=== PATIENT | female | born 1985 | race Caucasian/White ===

== ENCOUNTER → 2018-12-19 | Outpatient (CLI) | payer MEDICAID ==
[2018-12-19 12:49] LABS: HCT 41.6 % (34.0-46.0); HGB 13.5 gm/dL (11.4-16.0); MCH 27.4 pg (25.0-35.0); MCHC 32.4 g/dL (31.0-37.0); MCV 84.6 fL (80.0-100.0); Mean Platelet Volume 8.3; Platelet Count 257 k/uL (150-450); RBC 4.92 m/uL (3.80-5.40); WBC 7.9 k/uL (3.8-10.6)
[2018-12-19 12:59] LABS: Glucose 78 mg/dL (74-99)
--- NOTE | 2018-12-19 13:38 | US ---
EXAMINATION TYPE: Transabdominal DATE OF EXAM: 12/19/2018 1:08 PM COMPARISON: NONE CLINICAL HISTORY: Z36 confirm dates. Confirm dates, 1 EXAM PERFORMED: Transabdominal (TA) EXAM MEASUREMENTS: GESTATIONAL AGE / DATING Physician Established: Not established yet Dates by LMP: Unknown Dates by First Scan: This is 1st scan Dates by Current Scan for: (10 weeks/3 days) EDC: 07/14/2019 MATERNAL ANATOMY Uterus: 9.0 x 5.1 x 6.3cm, anteverted Right Ovary: 3.0 x 1.5 x 1.8cm Left Ovary: 3.4 x 1.7 x 2.6cm Post CDS / Adnexa: wnl Presence of free fluid: no Presence of corpus luteal cyst: left ovary: 1.7 x 1.1 x 1.6cm hypoechoic area, possible corpus luteum Presence of subchorionic bleed: no GESTATION / SURVEY CRL: 3.5cm (10 weeks/3 days) Yolk Sac (normal less than 6mm): not seen at this time Heart Rate: 167 bpm Rhythm: Normal IUP: Viable IUP Date of LMP: Patient unsure IMPRESSION: Viable single IUP measuring 10 weeks 3 days with a heart rate of 167bpm and an estimated delivery maged e of 07/14/2019.
[2018-12-20 04:08] LABS: Toxoplasma Antibody (IgG) <3.0 IU/mL (<7.2); Toxoplasma Antibody (IgM) <3.0 AU/mL (<8.0)
== END ==
LOC: RADUSWWP 12:23
PROVIDERS: ATTEND Obstetrics & Gynecology
DX: Z36.89 Encounter for other specified antenatal screening (principal); Z34.01 Encounter for supervision of normal first pregnancy, first trimester; Z3A.10 10 weeks gestation of pregnancy
CPT/HCPCS: 76801; 82565; 82947; 85027; 86762; 86777; 86778; 86780; 86850; 86900; 86901; 87340

== ENCOUNTER → 2019-02-15 | Outpatient (CLI) | payer MEDICAID ==
[2019-02-16 09:26] LABS: Alpha Fetoprotein (M.O.M) 1.25; B-HCG (M.O.M.) 1.75; Gestational Age (days) 0; Human Chorionic Gonadotropin 40.9 IU/mL; Inhibin A (M.O.M.) 0.94; Maternal Age at EDD (Yrs) 33; Smoker No
== END | disposition home or self-care (01) ==
LOC: LABWHC1 10:03
PROVIDERS: ATTEND Obstetrics & Gynecology
DX: Z34.02 Encounter for supervision of normal first pregnancy, second trimester (principal); Z3A.00 Weeks of gestation of pregnancy not specified
CPT/HCPCS: 36415; 82105; 82677; 84702; 86336

== ENCOUNTER → 2019-02-23 | Outpatient (CLI) | payer MEDICAID ==
--- NOTE | 2019-02-23 14:57 | US ---
EXAMINATION TYPE: US OB anatomy transabd DATE OF EXAM: 02/23/2019 COMPARISON: Early OB HISTORY: Large for dates O36.62X0 Anatomy scan TECHNIQUE: Transabdominal (TA) EXAM MEASUREMENTS: GESTATIONAL AGE / DATING Physician Established: (19 weeks/1 days) EDC: 07/19/2019 Dates by LMP: (19 weeks/1 days) EDC: 07/19/2019 Dates by First Scan: (19 weeks/6 days) EDC: 07/14/2019 Dates by Current Scan for: (19 weeks/0 days) EDC: 07/20/2019 SURVEY IUP: Single PLACENTA: Posterior PREVIA: No previa BETTIE: 13.0 cm Normal CERVICAL LENGTH (transabdominal: norm > 3.0cm): 3.7 cm BIOMETRY PRESENTATION: Breech BPD: 4.3 cm 19 weeks / 0 days HC: 16.5 cm 19 weeks / 1 days AC: 14.1 cm 19 weeks / 3 days FL: 3.0 cm 19 weeks / 1 days ESTIMATED WEIGHT IN GRAMS: 285 grams ESTIMATED WEIGHT IN LBS/OZ: 0 lbs. 10 oz. WEIGHT PERCENTAGE BASED ON ESTABLISHED DATE: 55.6 % HC/AC: 1.17 Normal FL/AC: 21 Normal HEART RATE: 142 bpm RHYTHM: Normal ANATOMY SEEN (within normal limits): * Lateral Vent (< 1 cm) 0.8 cm * Cisterna Magna (< 1.1 cm) 0.3 cm * Nuchal Fold (< 0.6 cm) 0.3 cm * Cerebellum (varies with age) 1.8 cm Choroid Plexus (bilateral) Midline Falx Cavus Septi Pellucidi Four Chamber Heart Outflow tracts: LVOT/RVOT Stomach Situs Nose / Lips Diaphragm Kidneys (bilateral) Bladder Cord Insert Three Vessel Cord Longitudinal Spine Transverse Spine Arms (bilateral) Legs (bilateral) Single, viable IUP/ Anatomy on list above appears wnl/ Incidental finding of possible echogenic bow el IMPRESSION: Single viable corresponding to ultrasound age 19 weeks 0 days with estimated delivery 07/20 by today's exam, technologist reports possible echogenic bowel, consider follow-up
== END | disposition home or self-care (01) ==
LOC: RADUSWWP 12:16
PROVIDERS: ATTEND Obstetrics & Gynecology
DX: O36.62X0 Maternal care for excessive fetal growth, second trimester, not applicable or unspecified (principal); Z3A.19 19 weeks gestation of pregnancy
CPT/HCPCS: 76811

== ENCOUNTER → 2019-04-17 | Outpatient (CLI) | payer MEDICAID ==
[2019-04-17 10:28] LABS: HCT 35.5 % (34.0-46.0); HGB 11.8 gm/dL (11.4-16.0); MCH 28.3 pg (25.0-35.0); MCHC 33.2 g/dL (31.0-37.0); MCV 85.2 fL (80.0-100.0); Mean Platelet Volume 8.4; Platelet Count 210 k/uL (150-450); RBC 4.17 m/uL (3.80-5.40); RDW 13.7 % (11.5-15.5)
== END | disposition home or self-care (01) ==
LOC: LABWHC1 08:58
PROVIDERS: ATTEND Obstetrics & Gynecology
DX: Z34.02 Encounter for supervision of normal first pregnancy, second trimester (principal)
CPT/HCPCS: 36415; 82950; 85027

== ENCOUNTER → 2019-06-15 | Outpatient (CLI) | payer MEDICAID ==
--- NOTE | 2019-06-15 13:39 | US ---
EXAMINATION TYPE: US OB >= 14 wk fetus DATE OF EXAM: 06/15/2019 COMPARISON: None CLINICAL HISTORY: O36.63X0 large for dates, third trimesterLarge for dates. TECHNIQUE: Transabdominal (TA) GESTATIONAL AGE / DATING Physician Established: (35 weeks/1 days) EDC: 07/19/2019 Dates by LMP: (35 weeks/1 days) EDC: 07/19/2019 Dates by First Scan: (10 weeks/3 days) EDC: 07/14/2019 Dates by Current Scan: (34 weeks/0 days) EDC: 07/27/2019 SURVEY IUP: Single PLACENTA: Fundal PREVIA: No Previa BETTIE: 14.1 cm Normal CERVICAL LENGTH (transabdominal: norm > 3.0cm): 3.4 cm BIOMETRY PRESENTATION: Vertex LIE: Longitudinal BPD: 8.49 cm 34 weeks / 1 days HC: 29.62 cm 32 weeks / 5 days AC: 31.84 cm 35 weeks / 5 days FL: 6.80 cm 35 weeks / 0 days ESTIMATED WEIGHT IN GRAMS: 2580 grams ESTIMATED WEIGHT IN LBS/OZ: 5 lbs. 11 oz. WEIGHT PERCENTAGE BASED ON ESTABLISHED DATES: 44.4% HC/AC: 0.93 Abnormal FL/AC: 21.37 cm Normal HEART RATE: 127 bpm RHYTHM: Normal IMPRESSION: Single live intrauterine has a sonographic age of 34 weeks and 0 days and estimated date of delivery of 07/27/2019, slightly discordant with menstrual age. Weight percentage based on establish ed dates of 44.4%.
== END | disposition home or self-care (01) ==
LOC: RADUSWWP 12:52
PROVIDERS: ATTEND Obstetrics & Gynecology
DX: O36.63X0 Maternal care for excessive fetal growth, third trimester, not applicable or unspecified (principal); Z3A.34 34 weeks gestation of pregnancy
CPT/HCPCS: 76805

== ENCOUNTER 2019-07-08 01:35 | Inpatient (IN) | payer MEDICAID ==
[2019-07-08] MEDS ORDERED: LIDOCAINE 0.5% (PF) 5 MG/ML (50 ML SDV) SQ PRN (02:20)
[2019-07-08] MEDS ORDERED: TERBUTALINE 1 MG/ML VIAL SQ PRN (02:20)
[2019-07-08] MEDS ORDERED: METHYLERGONOVINE 0.2 MG/ML 1 ML AMP IM PRN (02:20)
[2019-07-08] MEDS ORDERED: OXYTOCIN 10 UNIT/ML 1 ML VIAL IM PRN (02:20)
[2019-07-08] MEDS ORDERED: CARBOPROST TROMETHAMINE 250 MCG/ML 1 ML AMP IM PRN (02:20)
[2019-07-08 02:30] VITALS: RESP 16
[2019-07-08] MEDS: LACTATED RINGERS 1,000 ML IV SCH ×3 (02:58→19:51)
[2019-07-08 03:06] LABS: Basophils # (A) 0.1 k/uL (0-0.2); Basophils % (A) 1 %; Eosinophils # (A) 0.1 k/uL (0-0.7); Eosinophils % (A) 1 %; HCT 36.4 % (34.0-46.0); HGB 12.8 gm/dL (11.4-16.0); Lymphocytes # (A) 2.8 k/uL (1.0-4.8); Lymphocytes % (A) 24 %; MCH 28.7 pg (25.0-35.0); MCHC 35.2 g/dL (31.0-37.0); MCV 81.5 fL (80.0-100.0); Mean Platelet Volume 7.9; Monocytes # (A) 0.6 k/uL (0-1.0); Monocytes % (A) 5 %; Neutrophils # (A) 7.9 k/uL (1.3-7.7); Neutrophils % (A) 68 %; Platelet Count 217 k/uL (150-450); RBC 4.47 m/uL (3.80-5.40); RDW 12.7 % (11.5-15.5); WBC 11.7 k/uL (3.8-10.6)
[2019-07-08 03:28] VITALS: BMI 32.7
[2019-07-08] MEDS ORDERED: ROPIVACAINE 5MG/ML 20ML VIAL ONE (04:25)
[2019-07-08] MEDS ORDERED: SODIUM CHLORIDE 0.9% 100 ML BAG ONE (04:25)
[2019-07-08] MEDS ORDERED: fentaNYL (PF) 50 MCG/ML 5 ML AMP ONE (04:25)
[2019-07-08] MEDS ORDERED: HYDROcodone/APAP 5-325MG 1 EACH TAB PO PRN (09:34)
[2019-07-08] MEDS ORDERED: LANOLIN CREAM 5 GM TUBE TOPICAL PRN (09:34)
[2019-07-08] MEDS ORDERED: diphenhydrAMINE 50 MG CAP PO PRN (09:34)
[2019-07-08] MEDS ORDERED: BENZOCAINE/MENTHOL SPRAY 1 GM/SPRAY AEROSOL TOPICAL PRN (09:34)
[2019-07-08] MEDS ORDERED: diphenhydrAMINE 25 MG CAP PO PRN (09:34)
[2019-07-08] MEDS ORDERED: ZOLPIDEM 5 MG TAB PO PRN (09:34)
[2019-07-08] MEDS ORDERED: WITCH HAZEL 1 EACH MED..PAD TOPICAL PRN (09:34)
[2019-07-08] MEDS ORDERED: diphenhydrAMINE 50 MG/ML 1 ML VIAL IVP PRN ×2 (09:34)
[2019-07-08] MEDS ORDERED: MEASLES-MUMPS-RUBELLA VACC/PF 12,500 UNIT/0.5 ML VIAL SQ ONE (09:34)
[2019-07-08] MEDS ORDERED: SIMETHICONE 80 MG CHEWABLE PO PRN (09:34)
[2019-07-08] MEDS ORDERED: HYDROCORTISONE 2.5% RECTAL CREAM 30 GM TUBE RECTAL PRN (09:34)
[2019-07-08] MEDS ORDERED: ACETAMINOPHEN TAB 325 MG TAB PO PRN (09:34)
--- NOTE | 2019-07-08 09:37 | P.HPOB ---
History of Present Illness H&P Date: 07/08/19 Chief Complaint: Intrauterine at term: Spontaneous rupture membranes Patient is a 33-year-old at 38 weeks gestation who arrives following spontaneous rupture of membranes. She was having a few contractions prior to rupture but has started yvon consistently following spontaneous rupture membranes. Her course was, complicated by echogenic bowel on ultrasound at approximately 19 weeks for which she did see MFM. No specific therapies otherwise were advised. She also had heartburn through the latter part of the but this was controlled by Zantac. No other significant issues medically. Pertinent labs O+ blood type, Rh and it was negative, rubella was nonimmune, hepatitis B surface antigen and RPR as well as GBS were all neg ative. A category 1 tracings noted with heart tones in the 130s to 140s and she is dilated to 5 cm at presentation. Past Medical History Past Medical History: No Reported History History of Any Multi-Drug Resistant Organisms: None Reported Past Surgical History: No Surgical Hx Reported Past Anesthesia/Blood Transfusion Reactions: No Reported Reaction Past Psychological History: No Psychological Hx Reported Smoking Status: Never smoker Past Alcohol Use History: None Reported Past Drug Use History: None Reported - Past Family History Father Family Medical History: Hypertension Medications and Allergies Home Medications Medication Instructions Recorded Confirmed Type Pnv,Calcium 72/Iron/Folic Acid 1 each PO DAILY 07/08/19 07/08/19 History [ Plus Tablet] Allergies Allergy/AdvReac Type Severity Reaction Status Date / Time No Known Allergies Allergy Verified 07/08/19 01:45 Exam Osteopathic Statement: *. No significant issues noted on an osteopathic structural exam other than those noted in the History and Physical/Consult. Vital Signs Temp Pulse Resp BP 07/08/19 09:25 98 F 104 H 16 130/71 07/08/19 02:13 97.8 F 99 16 124/73 07/08/19 01:46 97.8 F 99 16 124/73 Intake and Output 07/07/19 07/08/19 07/08/19 22:59 06:59 14:59 Output Total 100 Balance -100 Output: Urine 100 Other: Weight 81.193 kg - OBG Physical Exam Breast: both: normal (no masses) Abdomen: bowel sounds normal, no diffuse tenderness, no bruit present, no guarding noted, no hepatomegaly, no splenomegaly, no mass Vulva: both: normal Vagina: normal moisture, no discharge Cervix: no lesion, no discharge Uterus: normal size, normal contour Adnexa: both: normal Anus/Rectum: normal perianal skin, no rectal mass, no hemorrhoids, heme negative Results Result Diagrams: 07/08/19 02:54 Abnormal Lab Results - Last 24 Hours (Table) 07/08/19 Range/Units 02:54 WBC 11.7 H (3.8-10.6) k/uL Neutrophils # 7.9 H (1.3-7.7) k/uL
--- NOTE | 2019-07-08 09:38 | P.PROBDLV ---
Vaginal Delivery Note - . Vaginal Delivery Note: Romy progressed to complete and pushing with spontaneous vaginal delivery of a viable male over secondary midline laceration. Following delivery of the head from right occiput anterior position a body cord was easily reduced and anterior posterior shoulders were easily delivered with gentle downward and upward traction. Once baby was fully delivered mouth nares were bulb suctioned and baby was placed on mother's abdomen where the umbilical cord was allowed to pulsate for 30 seconds prior to clamping and cutting. A spontaneous cry was noted. Once nursery personnel assume care placenta was then delivered intact and Pitocin was added to the IV. Secondary midline laceration was then repaired with 3-0 Vicryl in usual fashion following 1% Xylocaine for analgesia. scores were 9 and 9 at one and 5 minutes respectively and the weight was 6 lbs. 7 oz. Mother and baby are both stable following delivery.
[2019-07-08] MEDS ORDERED: DIPH,PERTUS(ACELL)TETVAC-LF 0.5 ML VIAL IM ONE (09:41)
[2019-07-08] MEDS ORDERED: OXYTOCIN 20 UNITS/1000 ML NS 1,000 ML IV SCH (09:45)
[2019-07-08] MEDS: IBUPROFEN 600 MG TAB PO PRN ×2 (10:42→19:28)
[2019-07-08] MEDS: SENNOSIDES-DOCUSATE SODIUM 1 EACH TAB PO SCH (19:29)
[2019-07-09 06:36] LABS: Basophils % (A) 0 %; Eosinophils # (A) 0.1 k/uL (0-0.7); Eosinophils % (A) 1 %; HCT 33.6 % (34.0-46.0); HGB 11.2 gm/dL (11.4-16.0); Lymphocytes # (A) 2.7 k/uL (1.0-4.8); Lymphocytes % (A) 18 %; MCHC 33.3 g/dL (31.0-37.0); Mean Platelet Volume 9.5; Monocytes # (A) 0.7 k/uL (0-1.0); Monocytes % (A) 4 %; Neutrophils # (A) 11.1 k/uL (1.3-7.7); Neutrophils % (A) 75 %; Platelet Count 186 k/uL (150-450); RDW 13.2 % (11.5-15.5); WBC 14.9 k/uL (3.8-10.6)
--- NOTE | 2019-07-09 08:54 | P.DS ---
Providers Date of admission: 07/08/19 02:01 Expected date of discharge: 07/09/19 Attending physician: Yaz Moreno Primary care physician: Stated None Hospital Course: This is a 33-year-old female 1 para 0 at 38-3/7 weeks who presented to labor and delivery with spontaneous rupture of membranes. She delivered a viable male vaginally on 07/08/2019 with scores of 9 at 1 minute and 9 at 5 minutes and weight of 6 lbs. 7 oz. Her course has been uncomplicated. Lochia is decreasing. Pain is fairly well controlled. She is working on breast-feeding. Vital signs are stable. Abdomen is soft with f undus firm and nontender. Extremities show negative Homans. Impression is status post vaginal delivery day #1. Plan is to discharge home today. Routine instructions are given. She is given a prescription for ibuprofen and a breast pump. She is advised to call the office if she has any further questions or concerns prior to her appointment time. She is advised to follow up in the office in 6 weeks. Procedures: Spontaneous vaginal delivery of a viable male on 07/08/2019 Patient Condition at Discharge: Stable Plan - Discharge Summary New Discharge Prescriptions: New Ibuprofen [Motrin] 600 mg PO Q6HR PRN #60 tab PRN Reason: Mild Pain Or Fever >= 100.5 Continue Pnv,Calcium 72/Iron/Folic Acid [ Plus Tablet] 1 each PO DAILY Discharge Medication List Pnv,Calcium 72/Iron/Folic Acid [ Plus Tablet] 1 each PO DAILY 07/08/19 [History] Ibuprofen [Motrin] 600 mg PO Q6HR PRN #60 tab 07/09/19 [Rx] Follow up Appointment(s)/Referral(s): Yaz Moreno DO [Doctor of Osteopathic Medicine] - 6 Weeks Activity/Diet/Wound Care/Special Instructions: Instructions 1. Do not begin any exercise program for 3 weeks. 2. Do not resume sexual relations for 3 weeks or longer if uncomfortable. 3. You may take tub baths or showers at any time. 4. You may use tampons if desired after 3 weeks. 5. Keep the area of episiotomy (stitches) clean and dry. 6. If you are not nursing, wear a good fitting, supportive bra during the day and limit fluid intake for at least 1 week to prevent breast engorgement. 7. Call the office, [phone], within the next week to make appointment for your 6 week checkup if it has not already been made. 8. Report any of the following occurrences to the doctor promptly: a. Heavy, excessive bleeding b. Chills, fever c. Burning or frequency of urination d. Pain or redness and breasts if nursing e. Increasing pain or swelling in episiotomy (stitches). In addition to the above instructions, the following additional should be followed: 1. No heavy lifting or straining (exercising) until after 6 week checkup. 2. Keep abdominal incision clean and dry: You may wear a dressing if more comfortable. 3. Make office appointment for 10 days after going home or as instructed by her doctor. Discharge Disposition: HOME SELF-CARE
[2019-07-09] MEDS: SENNOSIDES-DOCUSATE SODIUM 1 EACH TAB PO SCH (09:28)
[2019-07-09] MEDS: IBUPROFEN 600 MG TAB PO PRN (10:13)
[2019-07-09 15:54] VITALS: BP 131/68; PULSE 91; TEMP 98.5
== END 2019-07-09 17:10 | disposition home or self-care (01) | DRG 807 ==
LOC: FBPOP 01:35 → 4FBP 02:01
PROVIDERS: ADMIT Obstetrics & Gynecology; ATTEND Obstetrics & Gynecology
PROC: 10E0XZZ Delivery of Products of Conception, External Approach (ICD-10-PCS; principal; 2019-07-08)
PROC: 0KQM0ZZ Repair Perineum Muscle, Open Approach (ICD-10-PCS; 2019-07-08)
DX: O90.1 Disruption of perineal obstetric wound (principal); Z37.0 Single live birth; Z82.49 Family history of ischemic heart disease and other diseases of the circulatory system; Z3A.38 38 weeks gestation of pregnancy
CPT/HCPCS: 59025; 84112; 85025; 86850; 86900; 86901; 90471; 90472; 90707; 90715; 99213

== ENCOUNTER → 2021-12-08 | Outpatient (CLI) | payer MEDICAID ==
[2021-12-08 18:18] LABS: HCT 39.5 % (37.2-46.3); HGB 12.8 g/dL (12.0-15.0); MCH 26.9 pg (27.0-32.0); MCHC 32.4 g/dL (32.0-37.0); MCV 83.2 fL (80.0-97.0); Mean Platelet Volume 10.9 fL (9.5-12.2); NRBC Per 100 WBC 0 /100 WBCS (0.0-0.0); Platelet Count 292 X 10*3/uL (140-440); RBC 4.75 X 10*6/uL (4.10-5.20); RDW 12.9 % (11.5-14.5); WBC 9.62 X 10*3/uL (4.50-10.00)
[2021-12-08 18:32] LABS: African American GFR (CKD) 146.1 (60.0-200.0)
[2021-12-08 21:39] LABS: HIV 2 AB Non-Reactive (Non-Reactive); HIV AB P24 Non-Reactive (Non-Reactive); HIV P24 AG Non-Reactive (Non-Reactive)
[2021-12-09 13:50] LABS: Hepatitis B Surface Antigen Nonreactive (Nonreactive)
== END | disposition home or self-care (01) ==
LOC: LABWHC1 11:59
PROVIDERS: ATTEND Obstetrics & Gynecology
DX: Z34.81 Encounter for supervision of other normal pregnancy, first trimester (principal)
CPT/HCPCS: 36415; 82565; 82947; 85027; 86762; 86780; 86850; 86900; 86901; 87340; 87390

== ENCOUNTER → 2021-12-17 | Outpatient (CLI) | payer MEDICAID ==
--- NOTE | 2021-12-17 13:05 | US ---
EXAMINATION TYPE: Transabdominal DATE OF EXAM: 12/17/2021 12:37 PM COMPARISON: NONE CLINICAL HISTORY: Z36.89 ENCOUNTER FOR OTHER SPECIFIED SCR. confirm dates EXAM PERFORMED: Transabdominal (TA) EXAM MEASUREMENTS: GESTATIONAL AGE / DATING Physician Established: Not yet established Dates by LMP: (11 weeks/2 days) EDC: 07/06/22 Dates by First Scan: No previous this is first scan Dates by Current Scan for: (11 weeks/0 days) EDC: 07/08/22 MATERNAL ANATOMY Uterus: 10.3 x 5.4 x 7.8cm Right Ovary: 2.6 x 1.6 x 2.0cm Left Ovary: 2.7 x 1.5 x 2.3cm Post CDS / Adnexa: wnl Presence of free fluid: no GESTATION / SURVEY CRL: 4.0cm (11 weeks/0 days) Yolk Sac (normal less than 6mm): not seen Heart Rate: 167 bpm Rhythm: Normal IUP: Viable IUP Date of LMP: 09/29/21 Beta HcG (if available): Not available at this time IMPRESSION: Viable 11 weeks 2 days with a heart rate of 167 bpm and an EDC of 07/08/2022
== END | disposition home or self-care (01) ==
LOC: RADUSWWP 12:11
PROVIDERS: ATTEND Obstetrics & Gynecology
DX: Z36.89 Encounter for other specified antenatal screening (principal)
CPT/HCPCS: 76801

== ENCOUNTER → 2022-02-08 | Outpatient (CLI) | payer MEDICAID ==
--- NOTE | 2022-02-08 10:37 | US ---
EXAMINATION TYPE: US OB anatomy transabd DATE OF EXAM: 02/08/2022 COMPARISON: NONE HISTORY: O36.62XO MATERNAL CARE FOR EXCESS GROWTH, 2 Anatomy scan. . TECHNIQUE: Transabdominal (TA) EXAM MEASUREMENTS: GESTATIONAL AGE / DATING Physician Established: (18 weeks/4 days) EDC: 07/08/2022 Dates by LMP: (18 weeks/6 days) EDC: 07/06/2022 Dates by First Scan: (18 weeks/4 days) EDC: 07/08/2022 Dates by Current Scan for: (18 weeks/1 day) EDC: 07/11/2022 SURVEY IUP: Single PLACENTA: Posterior PREVIA: No previa BETTIE: 10.71 cm Normal CERVICAL LENGTH (transabdominal: norm > 3.0cm): 3.8 cm BIOMETRY PRESENTATION: Variable LIE: Transverse lie with head maternal left, variable. BPD: 3.97 cm 18 weeks / 0 days HC: 15.23 cm 18 weeks / 2 days AC: 13.18 cm 18 weeks / 5 days FL: 2.58 cm 17 weeks / 6 days ESTIMATED WEIGHT IN GRAMS: 232.11 grams ESTIMATED WEIGHT IN LBS/OZ: 0 lbs. 8 oz. WEIGHT PERCENTAGE BASED ON ESTABLISHED DATE: 28.3 % HC/AC: 1.16 Normal FL/AC: 19.60 HEART RATE: 143 bpm RHYTHM: Normal ANATOMY SEEN (within normal limits): * Lateral Vent (< 1 cm) 0.78 cm * Cisterna Magna (< 1.1 cm) 0.41 cm * Nuchal Fold (< 0.6 cm) 0.34 cm * Cerebellum (varies with age) 1.72 cm Choroid Plexus (bilateral) Midline Falx Cavus Septi Pellucidi Four Chamber Heart Outflow tracts: LVOT/RVOT Stomach Situs Nose / Lips Diaphragm Kidneys (bilateral) Bladder Cord Insert Three Vessel Cord Longitudinal Spine Transverse Spine Arms (bilateral) Legs (bilateral) Male gender documented. Scanned by two techs. IMPRESSION: Single viable uterine .
[2022-02-09 09:00] LABS: Alpha Fetoprotein 53.8 ng/mL; Alpha Fetoprotein (M.O.M) 1.14; B-HCG (M.O.M.) 1.13; Inhibin A (M.O.M.) 0.81; Interpretation SeeBelow; Maternal Age at EDD (Yrs) 36; Smoker No; Unconjugated Estriol (M.O.M.) 0.93
== END | disposition home or self-care (01) ==
LOC: RADUSWWP 08:19
PROVIDERS: ATTEND Obstetrics & Gynecology
DX: O36.62X0 Maternal care for excessive fetal growth, second trimester, not applicable or unspecified (principal); Z3A.00 Weeks of gestation of pregnancy not specified
CPT/HCPCS: 76811; 82105; 82677; 84702; 86336

== ENCOUNTER → 2022-03-19 | Outpatient (CLI) | payer MEDICAID ==
[2022-03-19 18:48] LABS: HCT 36.5 % (37.2-46.3); HGB 11.7 g/dL (12.0-15.0); MCH 27.3 pg (27.0-32.0); MCHC 32.1 g/dL (32.0-37.0); MCV 85.3 fL (80.0-97.0); Mean Platelet Volume 11.7 fL (9.5-12.2); NRBC Per 100 WBC 0 /100 WBCS (0.0-0.0); Platelet Count 194 X 10*3/uL (140-440); RBC 4.28 X 10*6/uL (4.10-5.20); RDW 13.5 % (11.5-14.5); WBC 8.53 X 10*3/uL (4.50-10.00)
== END | disposition home or self-care (01) ==
LOC: LABWHC1 10:45
PROVIDERS: ATTEND Obstetrics & Gynecology
DX: Z34.82 Encounter for supervision of other normal pregnancy, second trimester (principal)
CPT/HCPCS: 36415; 85027

== ENCOUNTER → 2022-04-21 | Outpatient (CLI) | payer MEDICAID | END | disposition home or self-care (01) | LOC: LABWHC1 08:40 | PROVIDERS: ATTEND Obstetrics & Gynecology | DX: Z34.82 Encounter for supervision of other normal pregnancy, second trimester (principal); Z34.83 Encounter for supervision of other normal pregnancy, third trimester | CPT/HCPCS: 36415; 82950 ==

== ENCOUNTER → 2022-05-21 | Outpatient (CLI) | payer MEDICAID ==
--- NOTE | 2022-05-21 14:58 | US ---
EXAMINATION TYPE: US OB >= 14 wk fetus DATE OF EXAM: 05/21/2022 COMPARISON: None CLINICAL HISTORY: O36.63X0 MATERNAL CARE FOR EXCESS GROWTH, THgrowth TECHNIQUE: Transabdominal (TA) GESTATIONAL AGE / DATING Physician Established: (33 weeks/1 days) EDC: 07/08/2022 Dates by LMP: (33 weeks/1 days) EDC: 07/08/2022 Dates by First Scan: (11 weeks/0 days) EDC: 07/08/2022 Dates by Current Scan: (31 weeks/4 days) EDC: 07/19/2022 SURVEY IUP: Single PLACENTA: Posterior PREVIA: No Previa BETTIE: 12.4 cm Normal CERVICAL LENGTH (transabdominal: norm > 3.0cm): obscured by bowel gas. BIOMETRY PRESENTATION: Vertex LIE: Longitudinal BPD: 7.74 cm 31 weeks / 0 days HC: 28.67 cm 31 weeks / 4 days AC: 26.42 cm 30 weeks / 4 days FL: 6.43 cm 33 weeks / 1 days ESTIMATED WEIGHT IN GRAMS: 1783 grams ESTIMATED WEIGHT IN LBS/OZ: 3 lbs. 15 oz. WEIGHT PERCENTAGE BASED ON ESTABLISHED DATES: 7% HC/AC: 1.09 cm FL/AC: 24.33 cm HEART RATE: 134 bpm RHYTHM: Normal IMPRESSION: Single viable intrauterine .
== END | disposition home or self-care (01) ==
LOC: RADUSWWP 12:18
PROVIDERS: ATTEND Obstetrics & Gynecology
DX: O36.63X0 Maternal care for excessive fetal growth, third trimester, not applicable or unspecified (principal); Z3A.00 Weeks of gestation of pregnancy not specified
CPT/HCPCS: 76805

== ENCOUNTER 2022-06-03 10:30 | Outpatient (CLI) | payer MEDICAID | END 2022-06-03 12:00 | disposition home or self-care (01) | LOC: FBPOP 10:30 | PROVIDERS: ATTEND Obstetrics & Gynecology | DX: Z36.83 Encounter for fetal screening for congenital cardiac abnormalities (principal) | CPT/HCPCS: 59025 ==

== ENCOUNTER 2022-06-11 12:09 | Outpatient (CLI) | payer MEDICAID ==
[2022-06-11 13:33] VITALS: BP 124/71; PULSE 94; RESP 16; TEMP 97.1
--- NOTE | 2022-06-15 08:36 | P.MSEPDOC ---
Presenting Problems - Arrival Data Date of Arrival on Unit: 06/11/22 Time of Arrival on Unit: 12:09 Mode of Transport: Ambulatory - Complaint OB-Reason for Admission/Chief Complaint: NST Comment: twice weekly NST for AMA and IUGR Medical History - Information : 2 Para: 1 Term: 1 : 0 Abortions: Spontaneous or Elective: 0 Number of Living Children: 1 - Gestational Age Gestational Age by JOSHUA (wks/days): 36 Weeks and 3 Days - History Complications: Other Comment: AMA, IUGR Review of Systems - Review of Systems Constitutional: No problems Breast: No problems ENT: No problems Cardiovascular: No problems Respiratory: No problems Gastrointestinal: No problems Genitourinary: No problems Musculoskeletal: No problems Neurological: No problems Skin: No problems Vital Signs - Temperature Temperature: 97.1 F Temperature Source: Temporal Artery Scan - Pulse Brachial Pulse Rate: 94 Pulse Assessment Method: Automatic Cuff - Respirations Respiratory Rate: 16 Oxygen Delivery Method: Room Air O2 Sat by Pulse Oximetry: 98 - Blood Pressure Right Arm Blood Pressure: 124/71 Blood Pressure Mean: 88 Blood Pressure Source: Automatic Cuff Medical Screen Scoring - Assessment - Baby A Baseline FHR: 130 Heart Rate - NICHD Category: Category II (Indeterminate) NST: Reactive Physician Notification - Physician Notified Physician Notified Date: 06/11/22 Physician Notified Time: 13:13 Physician: Yaz Moreno Order Received: Yes - Notification Comment Comment: Notified Dr. Moreno of 2 variable decelerations which resolved with position change, additional monitoring for 28 mins was Category 1 Maternal Triage Index - Maternal Triage Index Presenting for scheduled procedure w/no complaint: Yes - Scheduled/Requesting Priority 5 Scheduled/Requesting Priority 5: No Disposition - Disposition OB Disposition: Triage, Discharge to home, Written follow up instructions reviewed Discharge Date: 06/11/22 Discharge Time: 13:16 I agree with the RN Medical Screening Exam: Yes Case reviewed; plan agreed upon as documented in EMR&OBIX.: Yes Diagnosis: SUPERVISION OF ELDERLY MULTIGRAVIDA, THIRD TRIMESTER Additional Diagnoses: IUGR
== END 2022-06-11 13:18 | disposition home or self-care (01) ==
LOC: FBPOP 12:09
PROVIDERS: ATTEND Obstetrics & Gynecology
DX: O09.523 Supervision of elderly multigravida, third trimester (principal); Z3A.36 36 weeks gestation of pregnancy
CPT/HCPCS: 59025

== ENCOUNTER 2022-06-15 09:19 | Outpatient (CLI) | payer MEDICAID ==
[2022-06-15 10:32] VITALS: BP 126/75; PULSE 94; RESP 16; TEMP 97.6
--- NOTE | 2022-06-15 19:31 | P.MSEPDOC ---
Presenting Problems - Arrival Data Date of Arrival on Unit: 06/15/22 Time of Arrival on Unit: 09:19 Mode of Transport: Ambulatory - Complaint OB-Reason for Admission/Chief Complaint: NST Medical History - Information : 2 Para: 1 Term: 1 : 0 Abortions: Spontaneous or Elective: 0 Number of Living Children: 1 - Gestational Age Gestational Age by JOSHUA (wks/days): 36 Weeks and 5 Days Review of Systems - Review of Systems Constitutional: No problems Breast: No problems ENT: No problems Cardiovascular: No problems Respiratory: No problems Gastrointestinal: No problems Genitourinary: No problems Musculoskeletal: No problems Neurological: No problems Skin: No problems Vital Signs - Temperature Temperature: 97.6 F Temperature Source: Temporal Artery Scan - Pulse Brachial Pulse Rate: 94 Pulse Assessment Method: Automatic Cuff - Respirations Respiratory Rate: 16 Oxygen Delivery Method: Room Air O2 Sat by Pulse Oximetry: 98 - Blood Pressure Right Arm Supine Blood Pressure: 126/75 Blood Pressure Mean: 92 Blood Pressure Source: Automatic Cuff Medical Screen Scoring - Cervical Exam Membranes: Intact - Uterine Contractions Intensity: Absent Resting: Soft to palpation - Assessment - Baby A Baseline FHR: 140 Heart Rate - NICHD Category: Category I (Normal) Physician Notification - Physician Notified Physician Notified Date: 06/15/22 Physician Notified Time: 10:20 Physician: Dr. Moreno New Order Received: No - Notification Comment Comment: Dr. Moreno notified of restarted NST due to movement, possible accelerations noted but unable to trace, repositioned on lt side NST restarted and reactive, OK to discharge per DR. Moreno Maternal Triage Index - Maternal Triage Index Presenting for scheduled procedure w/no complaint: Yes - Scheduled/Requesting Priority 5 Scheduled/Requesting Priority 5: Yes Criteria Met for Priority 5: NST twice/week Disposition - Disposition OB Disposition: Discharge to home, Written follow up instructions reviewed Discharge Date: 06/15/22 Discharge Time: 10:25 I agree with the RN Medical Screening Exam: Yes Case reviewed; plan agreed upon as documented in EMR&OBIX.: Yes Diagnosis: SUPERVISION OF ELDERLY MULTIGRAVIDA, THIRD TRIMESTER Additional Diagnoses: IUGR
== END 2022-06-15 10:25 | disposition home or self-care (01) ==
LOC: FBPOP 09:19
PROVIDERS: ATTEND Obstetrics & Gynecology
DX: O09.523 Supervision of elderly multigravida, third trimester (principal); Z3A.36 36 weeks gestation of pregnancy
CPT/HCPCS: 99213

== ENCOUNTER 2022-06-19 10:20 | Outpatient (CLI) | payer MEDICAID ==
[2022-06-19 10:37] VITALS: BP 121/77; PULSE 90; RESP 18; TEMP 97.5
== END 2022-06-19 10:45 | disposition home or self-care (01) ==
LOC: FBPOP 10:20
PROVIDERS: ATTEND Obstetrics & Gynecology
DX: Z53.9 Procedure and treatment not carried out, unspecified reason (principal)
CPT/HCPCS: 59025

== ENCOUNTER 2022-06-23 10:40 | Outpatient (CLI) | payer MEDICAID ==
[2022-06-23 11:13] VITALS: BP 95/61; PULSE 93; RESP 18; TEMP 97.3
--- NOTE | 2022-06-25 13:16 | P.MSEPDOC ---
Presenting Problems - Arrival Data Date of Arrival on Unit: 06/23/22 Time of Arrival on Unit: 10:40 Mode of Transport: Ambulatory - Complaint OB-Reason for Admission/Chief Complaint: NST Comment: Pt present with order for biweekly NST for AMA, IUGR Medical History - Information : 2 Para: 1 Term: 1 : 0 Abortions: Spontaneous or Elective: 0 Number of Living Children: 1 - Gestational Age Gestational Age by JOSHUA (wks/days): 37 Weeks and 6 Days Review of Systems - Review of Systems Constitutional: No problems Breast: No problems ENT: No problems Cardiovascular: No problems Respiratory: No problems Gastrointestinal: No problems Genitourinary: No problems Musculoskeletal: No problems Neurological: No problems Skin: No problems Vital Signs - Temperature Temperature: 97.3 F Temperature Source: Oral - Pulse Right Sitting Brachial Pulse Rate: 93 Pulse Assessment Method: Automatic Cuff - Respirations Respiratory Rate: 18 Oxygen Delivery Method: Room Air - Blood Pressure Right Arm Sitting Blood Pressure: 95/61 Blood Pressure Mean: 72 Blood Pressure Source: Automatic Cuff Medical Screen Scoring - Assessment - Baby A Baseline FHR: 120 Heart Rate - NICHD Category: Category I (Normal) NST: Reactive Physician Notification - Physician Notified Physician Notified Date: 06/23/22 Physician Notified Time: 11:12 Physician: Yaz Moreno Order Received: Yes - Notification Comment Comment: Written order for Dc home after reactive NST Maternal Triage Index - Maternal Triage Index Presenting for scheduled procedure w/no complaint: Yes - Scheduled/Requesting Priority 5 Scheduled/Requesting Priority 5: No Disposition - Disposition OB Disposition: Discharge to home Discharge Date: 06/23/22 Discharge Time: 11:09 I agree with the RN Medical Screening Exam: Yes Case reviewed; plan agreed upon as documented in EMR&OBIX.: Yes Diagnosis: SUPERVISION OF ELDERLY MULTIGRAVIDA, THIRD TRIMESTER
== END 2022-06-23 11:12 | disposition home or self-care (01) ==
LOC: FBPOP 10:40
PROVIDERS: ATTEND Obstetrics & Gynecology
DX: O09.523 Supervision of elderly multigravida, third trimester (principal); Z3A.37 37 weeks gestation of pregnancy
CPT/HCPCS: 59025

== ENCOUNTER 2022-06-25 12:55 | Outpatient (CLI) | payer MEDICAID | END 2022-06-25 13:24 | disposition home or self-care (01) | LOC: FBPOP 12:55 | PROVIDERS: ATTEND Obstetrics & Gynecology | DX: Z53.9 Procedure and treatment not carried out, unspecified reason (principal) ==

== ENCOUNTER 2022-06-28 12:00 | Outpatient (CLI) | payer MEDICAID | END 2022-06-28 12:33 | disposition home or self-care (01) | LOC: FBPOP 12:00 | PROVIDERS: ATTEND Obstetrics & Gynecology | DX: Z53.29 Procedure and treatment not carried out because of patient's decision for other reasons (principal) | CPT/HCPCS: 59025 ==

== ENCOUNTER 2022-06-28 15:32 | Outpatient (CLI) | payer MEDICAID ==
[2022-06-28 17:25] VITALS: BP 128/70; PULSE 82; RESP 16; TEMP 96.7
--- NOTE | 2022-07-15 11:27 | P.MSEPDOC ---
Presenting Problems - Arrival Data Date of Arrival on Unit: 06/28/22 Time of Arrival on Unit: 15:32 Mode of Transport: Ambulatory - Complaint OB-Reason for Admission/Chief Complaint: Possible Onset of Labor Comment: pt was here for nst earlier today and was told to return back to triage if contractions increased in frequency, pt reports feeling tightening in abd and discomfort in lower back every 4-5 minutes since leaving triage, abd soft and non tender, reports + fm Medical History - Information : 2 Para: 1 Term: 1 : 0 Abortions: Spontaneous or Elective: 0 Number of Living Children: 1 - Gestational Age Gestational Age by JOSHUA (wks/days): 38 Weeks and 4 Days Review of Systems - Review of Systems Constitutional: No problems Breast: No problems ENT: No problems Cardiovascular: No problems Respiratory: No problems Gastrointestinal: No problems Genitourinary: No problems Musculoskeletal: No problems Neurological: No problems Skin: No problems Vital Signs - Temperature Temperature: 96.7 F Temperature Source: Temporal Artery Scan - Pulse Right Brachial Pulse Rate: 82 Pulse Assessment Method: Automatic Cuff - Respirations Respiratory Rate: 16 Oxygen Delivery Method: Room Air O2 Sat by Pulse Oximetry: 98 - Blood Pressure Right Arm Blood Pressure: 128/70 Blood Pressure Mean: 89 Blood Pressure Source: Automatic Cuff Medical Screen Scoring - Cervical Exam Dilation (cm): 4.5 Effacement (%): 50 Station: -2 Membranes: Intact - Uterine Contractions Frequency From (mins): 2 Frequency To (mins): 4 Duration From (seconds): 60 Duration To (seconds): 90 Intensity: Mild Resting: Soft to palpation - Assessment - Baby A Baseline FHR: 130 Heart Rate - NICHD Category: Category I (Normal) Physician Notification - Physician Notified Physician Notified Date: 06/28/22 Physician Notified Time: 17:03 Physician: Rosalia Alvarez New Order Received: Yes (dc home) Maternal Triage Index - Non-Urgent/Priority 4 Non-Urgent Priority 4: Yes Criteria Met for Priority 4: cervix remains unchanged after recheck one hour from arriving in triage, pt ok to dc home Disposition - Disposition OB Disposition: Discharge to home, Written follow up instructions reviewed Discharge Date: 06/28/22 Discharge Time: 17:15 I agree with the RN Medical Screening Exam: Yes Case reviewed; plan agreed upon as documented in EMR&OBIX.: Yes Diagnosis: PRIMARY INADEQUATE CONTRACTIONS
== END 2022-06-28 17:15 | disposition home or self-care (01) ==
LOC: FBPOP 15:32
PROVIDERS: ATTEND Obstetrics & Gynecology
DX: O47.1 False labor at or after 37 completed weeks of gestation (principal); Z3A.38 38 weeks gestation of pregnancy
CPT/HCPCS: 59025; 99213

== ENCOUNTER 2022-07-03 09:07 | Outpatient (CLI) | payer MEDICAID ==
[2022-07-03 10:25] VITALS: BP 119/73; PULSE 101; RESP 16; TEMP 97.8
--- NOTE | 2022-07-04 05:21 | P.MSEPDOC ---
Presenting Problems - Arrival Data Date of Arrival on Unit: 07/03/22 Time of Arrival on Unit: 09:07 Mode of Transport: Ambulatory - Complaint OB-Reason for Admission/Chief Complaint: Other Comment: pt arrived with an order for a NST for small for dates per u/s per Dr Moreno Medical History - Information : 2 Para: 1 Term: 1 : 0 Abortions: Spontaneous or Elective: 0 Number of Living Children: 1 - Gestational Age Gestational Age by JOSHUA (wks/days): 39 Weeks and 4 Days Review of Systems - Review of Systems Constitutional: No problems Breast: No problems ENT: No problems Cardiovascular: No problems Respiratory: No problems Gastrointestinal: No problems Genitourinary: No problems Musculoskeletal: No problems Neurological: No problems Skin: No problems Vital Signs - Temperature Temperature: 97.8 F Temperature Source: Oral - Pulse Right Brachial Pulse Rate: 101 Pulse Assessment Method: Automatic Cuff - Respirations Respiratory Rate: 16 Oxygen Delivery Method: Room Air O2 Sat by Pulse Oximetry: 97 - Blood Pressure Right Arm Blood Pressure: 119/73 Blood Pressure Mean: 88 Blood Pressure Source: Automatic Cuff Medical Screen Scoring - Cervical Exam Membranes: Intact - Assessment - Baby A Baseline FHR: 120 Heart Rate - NICHD Category: Category I (Normal) NST: Reactive Physician Notification - Physician Notified Physician Notified Date: 07/03/22 Physician: Dr Moreno New Order Received: No - Notification Comment Comment: may discharge to home with instructions Maternal Triage Index - Scheduled/Requesting Priority 5 Scheduled/Requesting Priority 5: Yes Criteria Met for Priority 5: pt arrived with a order for a NST per Dr Moreno Disposition - Disposition OB Disposition: Discharge to home Discharge Date: 07/03/22 Discharge Time: 10:10 I agree with the RN Medical Screening Exam: Yes Case reviewed; plan agreed upon as documented in EMR&OBIX.: Yes Diagnosis: RELATED CONDITIONS, UNSPECIFIED, THIRD TRIMESTER
== END 2022-07-03 10:10 | disposition home or self-care (01) ==
LOC: FBPOP 09:07
PROVIDERS: ATTEND Obstetrics & Gynecology
DX: O26.93 Pregnancy related conditions, unspecified, third trimester (principal); Z3A.39 39 weeks gestation of pregnancy
CPT/HCPCS: 59025

== ENCOUNTER 2022-07-05 06:00 | Inpatient (IN) | payer MEDICAID ==
--- NOTE | 2022-07-04 19:04 | P.HPOB ---
History of Present Illness H&P Date: 07/04/22 Chief Complaint: Induction of labor This is a 36 y.o. female, 2, para 1, with an estimated date of confinement of 07/06/2022, estimated gestational age of 39-6/7 weeks, who presents for induction of labor. She complains of frequent contractions. She has been getting regular NSTs due to advanced maternal age. labs: Hepatitis B surface antigen-neg Rubella-immune Random glucose-87 Hemoglobin-12.8 Syphilis antibody-neg HIV-NR Blood type-O+ Antibody screen-neg Quad-neg 1 hr. GTT-114 GBS-positive OB Hx: . History of 1 vaginal delivery. 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 Review of Systems Constitutional: Denies chills, Denies fever Eyes: denies blurred vision, denies pain Ears, nose, mouth and throat: Denies headache, Denies sore throat Cardiovascular: Denies chest pain, Denies shortness of breath Respiratory: Denies cough Gastrointestinal: Reports abdominal pain (irregular contractions) Genitourinary: Reports pelvic pain, Reports Musculoskeletal: Reports low back pain Integumentary: Denies pruritus, Denies rash Neurological: Denies numbness, Denies weakness Psychiatric: Denies anxiety, Denies depression Past Medical History Past Medical History: No Reported History History of Any Multi-Drug Resistant Organisms: None Reported Past Surgical History: No Surgical Hx Reported Past Anesthesia/Blood Transfusion Reactions: No Reported Reaction Past Psychological History: No Psychological Hx Reported Smoking Status: Never smoker Past Alcohol Use History: None Reported Past Drug Use History: None Reported - Past Family History Father Family Medical History: Diabetes Mellitus, Hypertension Medications and Allergies Home Medications Medication Instructions Recorded Confirmed Type Vit No.180/Iron/Folic 1 each PO DAILY 07/08/19 07/03/22 History [ Plus Vitamin-Mineral] Cetirizine HCl [Zyrtec] 5 mg PO DAILY 06/03/22 07/03/22 History Omeprazole Magnesium [PriLOSEC OTC] 20 mg PO DAILY 06/15/22 07/03/22 History Allergies Allergy/AdvReac Type Severity Reaction Status Date / Time No Known Allergies Allergy Verified 07/03/22 09:15 Exam Osteopathic Statement: *. No significant issues noted on an osteopathic structural exam other than those noted in the History and Physical/Consult. HEENT: within normal limits Heart: regular rate and rhythm Lungs: clear to auscultation bilaterally Abdomen: , non-tender Cervix: 5 cm/80%/-2 heart tones: 140's by doppler Extremities: neg. Augustine's Assessment and Plan (1) 39 weeks gestation of Status: Acute Code(s): Z3A.39 - 39 WEEKS GESTATION OF SNOMED Code(s): 58405717 (2) Group B Streptococcus carrier, +RV culture, currently Status: Acute Code(s): O99.820 - STREPTOCOCCUS B CARRIER STATE COMPLICATING SNOMED Code(s): 5228124001758 Plan: Proceed with oxytocin induction of labor. Antibiotic prophylaxis for GBS. Expectant management. Epidural anesthesia if desired.
[2022-07-05] MEDS: LACTATED RINGERS 1,000 ML IV SCH ×2 (06:25→08:39)
[2022-07-05] MEDS ORDERED: LIDOCAINE 1% (10MG/ML) FOR IV START INTRADERMA PRN (06:32)
[2022-07-05] MEDS ORDERED: TERBUTALINE 1 MG/ML VIAL SQ PRN (06:32)
[2022-07-05] MEDS ORDERED: METHYLERGONOVINE 0.2 MG/ML 1 ML AMP IM PRN (06:32)
[2022-07-05] MEDS ORDERED: AMPICILLIN 2,000 MG in SODIUM CHLORIDE 0.9% 100 ML IVPB STA (06:32)
[2022-07-05] MEDS ORDERED: LIDOCAINE 0.5% (PF) 5 MG/ML (50 ML SDV) SQ PRN (06:32)
[2022-07-05] MEDS ORDERED: OXYTOCIN 10 UNIT/ML 1 ML VIAL IM PRN (06:32)
[2022-07-05] MEDS ORDERED: OXYTOCIN 30 UNITS/500 ML NS 30 UNIT in SALINE 1 500ML.BAG IV SCH ×2 (06:32→10:15)
[2022-07-05] MEDS ORDERED: CARBOPROST TROMETHAMINE 250 MCG/ML 1 ML AMP IM PRN (06:32)
[2022-07-05 06:45] LABS: Basophils % (A) 1 %; Eosinophils # (A) 0.1 k/uL (0-0.7); Eosinophils % (A) 1 %; HCT 37.4 % (34.0-46.0); HGB 12.4 gm/dL (11.4-16.0); Lymphocytes # (A) 2.5 k/uL (1.0-4.8); Lymphocytes % (A) 27 %; MCHC 33.3 g/dL (31.0-37.0); MCV 84.3 fL (80.0-100.0); Mean Platelet Volume 9.5; Monocytes # (A) 0.5 k/uL (0-1.0); Monocytes % (A) 5 %; Neutrophils # (A) 6.2 k/uL (1.3-7.7); Neutrophils % (A) 65 %; Platelet Count 184 k/uL (150-450); RBC 4.43 m/uL (3.80-5.40); RDW 12.9 % (11.5-15.5); WBC 9.5 k/uL (3.8-10.6)
[2022-07-05] MEDS ORDERED: BENZOCAINE/MENTHOL SPRAY 1 GM/SPRAY AEROSOL TOPICAL PRN (10:15)
[2022-07-05] MEDS ORDERED: ACETAMINOPHEN TAB 325 MG TAB PO PRN (10:15)
[2022-07-05] MEDS ORDERED: diphenhydrAMINE 50 MG/ML 1 ML VIAL IVP PRN ×2 (10:15)
[2022-07-05] MEDS ORDERED: diphenhydrAMINE 50 MG CAP PO PRN (10:15)
[2022-07-05] MEDS ORDERED: SIMETHICONE 80 MG CHEWABLE PO PRN (10:15)
[2022-07-05] MEDS ORDERED: LANOLIN CREAM 5 GM TUBE TOPICAL PRN (10:15)
[2022-07-05] MEDS ORDERED: ZOLPIDEM 5 MG TAB PO PRN (10:15)
[2022-07-05] MEDS ORDERED: HYDROCORTISONE 2.5% RECTAL CREAM 30 GM TUBE RECTAL PRN (10:15)
[2022-07-05] MEDS ORDERED: diphenhydrAMINE 25 MG CAP PO PRN (10:15)
[2022-07-05] MEDS ORDERED: AMPICILLIN 1,000 MG in SODIUM CHLORIDE 0.9% 50 ML IVPB SCH (10:30)
[2022-07-05] MEDS: PANTOPRAZOLE 40 MG TABLET PO SCH (11:03)
[2022-07-05] MEDS: PRENATAL VIT-IRON-FOLIC ACID 1 EACH TABLET PO SCH (11:03)
[2022-07-05] MEDS: IBUPROFEN 600 MG TAB PO PRN ×2 (12:13→20:26)
--- NOTE | 2022-07-05 13:23 | P.PROBDLV ---
Vaginal Delivery Note - . Vaginal Delivery Note: The patient progressed to complete dilation fairly rapidly after oxytocin induction of labor was carried out with artificial rupture membranes with clear fluid noted. She did receive epidural anesthesia. Shortly after laying down from her epidural, she had a deceleration into the 80s and was checked and found to be complete. Heart tones did return to baseline with position changes. She began pushing. Infant's head came to a crown. With one further push the inf ant's head delivered across the perineum followed by the anterior shoulder. Nose and mouth were bulb suctioned. With one further push the remainder the easily delivered and was placed on mother's abdomen. Cord was clamped and cut and was taken to warmer for evaluation. A viable male infant was noted with scores of 9 at 1 minute and 9 at 5 minutes and infant weight of 6 lbs. 1 oz. Placenta delivered shortly thereafter, intact, with a three-vessel cord. Uterus contracted fairly well after oxytocin was given and uterine massage was carried out. Inspection of the perineum revealed no perineal lacerations. Estimated blood loss is approximately 150 mL's. Mother and are in stable condition. The placenta did have a marginal cord insertion. Placenta will be sent to pathology.
[2022-07-05] MEDS: SENNOSIDES-DOCUSATE SODIUM 1 EACH TAB PO SCH (20:26)
[2022-07-06] MEDS: IBUPROFEN 600 MG TAB PO PRN ×3 (02:17→20:18)
[2022-07-06 06:54] LABS: Basophils % (A) 1 %; Eosinophils # (A) 0.1 k/uL (0-0.7); Eosinophils % (A) 1 %; HCT 35.5 % (34.0-46.0); HGB 11.3 gm/dL (11.4-16.0); Lymphocytes # (A) 2.4 k/uL (1.0-4.8); Lymphocytes % (A) 25 %; MCH 27.1 pg (25.0-35.0); MCHC 31.7 g/dL (31.0-37.0); MCV 85.5 fL (80.0-100.0); Mean Platelet Volume 9.7; Monocytes # (A) 0.5 k/uL (0-1.0); Monocytes % (A) 5 %; Neutrophils # (A) 6.4 k/uL (1.3-7.7); Neutrophils % (A) 67 %; Platelet Count 188 k/uL (150-450); RBC 4.16 m/uL (3.80-5.40); WBC 9.5 k/uL (3.8-10.6)
--- NOTE | 2022-07-06 08:56 | P.DS ---
Providers Date of admission: 07/05/22 06:00 Expected date of discharge: 07/06/22 Attending physician: Yaz Moreno Primary care physician: Stated None - Discharge Diagnosis(es) (1) 39 weeks gestation of Current Visit: No Status: Acute (2) Group B Streptococcus carrier, +RV culture, currently Current Visit: No Status: Acute Hospital Course: This is a 36-year-old female 2 para 1 at 39-6/7 weeks who presented for induction of labor. She delivered vaginally a viable male with scores of 9 at 1 minute and 9 at 5 minutes and infant weight of 6 lbs. 1 oz. Her course has been uncomplicated. Lochia is decreasing. She is breast-feeding. Pain is fairly well controlled. Vital signs are stable. Abdomen is soft with fundus firm and nontender. Extremities show negative Homans. Impression is status post vaginal delivery day #1. Plan is to discharge home today as long as baby is okay for going home. Routine instructions are given. She will be given a prescription for ibuprofen. She is advised to call the office if she has any further questions or concerns prior to her appointment time. She will be given a prescription for a breast pump if needed. Procedures: Oxytocin induction of labor Spontaneous vaginal delivery of a viable male on 07/05/2022 Patient Condition at Discharge: Stable Plan - Discharge Summary New Discharge Prescriptions: New Ibuprofen [Motrin] 600 mg PO Q6HR PRN #60 tab PRN Reason: Mild Pain (Scale 1 To 3) Continue Vit No.180/Iron/Folic [ Plus Vitamin-Mineral] 1 each PO DAILY No Action Cetirizine HCl [Zyrtec] 5 mg PO DAILY Omeprazole Magnesium [PriLOSEC OTC] 20 mg PO DAILY Discharge Medication List Vit No.180/Iron/Folic [ Plus Vitamin-Mineral] 1 each PO DAILY 07/08/19 [History] Cetirizine HCl [Zyrtec] 5 mg PO DAILY 06/03/22 [History] Omeprazole Magnesium [PriLOSEC OTC] 20 mg PO DAILY 06/15/22 [History] Ibuprofen [Motrin] 600 mg PO Q6HR PRN #60 tab 07/06/22 [Rx] Follow up Appointment(s)/Referral(s): Yaz Moreno DO [Doctor of Osteopathic Medicine] - 6 Weeks Activity/Diet/Wound Care/Special Instructions: Instructions 1. Do not begin any exercise program for 3 weeks. 2. Do not resume sexual relations for 3 weeks or longer if uncomfortable. 3. You may take tub baths or showers at any time. 4. You may use tampons if desired after 3 weeks. 5. Keep the area of episiotomy (stitches) clean and dry. 6. If you are not nursing, wear a good fitting, supportive bra during the day and limit fluid intake for at least 1 week to prevent breast engorgement. 7. Call the office, [phone], within the next week to make appointment for your 6 week checkup if it has not already been made. 8. Report any of the following occurrences to the doctor promptly: a. Heavy, excessive bleeding b. Chills, fever c. Burning or frequency of urination d. Pain or redness and breasts if nursing e. Increasing pain or swelling in episiotomy (stitches). In addition to the above instructions, the following additional should be followed: 1. No heavy lifting or straining (exercising) until after 6 week checkup. 2. Keep abdominal incision clean and dry: You may wear a dressing if more comfortable. 3. Make office appointment for 10 days after going home or as instructed by her doctor. Discharge Disposition: HOME SELF-CARE
[2022-07-06] MEDS: PANTOPRAZOLE 40 MG TABLET PO SCH (09:00)
[2022-07-06] MEDS: SENNOSIDES-DOCUSATE SODIUM 1 EACH TAB PO SCH ×2 (09:00→23:06)
[2022-07-06] MEDS: PRENATAL VIT-IRON-FOLIC ACID 1 EACH TABLET PO SCH (12:09)
[2022-07-07 08:29] VITALS: BP 115/71; PULSE 70; RESP 14; TEMP 98
[2022-07-07] MEDS: IBUPROFEN 600 MG TAB PO PRN (09:47)
== END 2022-07-07 11:25 | disposition home or self-care (01) | DRG 807 ==
LOC: 4FBP 06:00
PROVIDERS: ADMIT Obstetrics & Gynecology; ATTEND Obstetrics & Gynecology
PROC: 00HU33Z Insertion of Infusion Device into Spinal Canal, Percutaneous Approach (ICD-10-PCS; principal; 2022-07-05)
PROC: 10907ZC Drainage of Amniotic Fluid, Therapeutic from Products of Conception, Via Natural or Artificial Opening (ICD-10-PCS; principal; 2022-07-05)
PROC: 3E0R3NZ Introduction of Analgesics, Hypnotics, Sedatives into Spinal Canal, Percutaneous Approach (ICD-10-PCS; principal; 2022-07-05)
PROC: 3E033VJ Introduction of Other Hormone into Peripheral Vein, Percutaneous Approach (ICD-10-PCS; principal; 2022-07-05)
PROC: 10E0XZZ Delivery of Products of Conception, External Approach (ICD-10-PCS; principal; 2022-07-05)
DX: O99.824 Streptococcus B carrier state complicating childbirth (principal); O76 Abnormality in fetal heart rate and rhythm complicating labor and delivery; O62.3 Precipitate labor; O43.193 Other malformation of placenta, third trimester; Z3A.39 39 weeks gestation of pregnancy; Z37.0 Single live birth
CPT/HCPCS: 85025; 86850; 86900; 86901; 88307